=== PATIENT | female | born 1945 | race Caucasian/White ===

== ENCOUNTER → 2017-07-27 | Outpatient (CLI) | payer MEDICARE, OTHER ==
[~2017-07-27] MED LIST: LEVSOD200 PO; LOVA40 PO; SERT25 PO
== END | disposition home or self-care (01) ==
LOC: PLD 08:44 → LAB SHORT 08:44
DX: D22.72 Melanocytic nevi of left lower limb, including hip (principal)
CPT/HCPCS: 88305

== ENCOUNTER → 2018-08-02 | Outpatient (CLI) | payer MEDICARE, OTHER | END | disposition home or self-care (01) | LOC: LAB SHORT 13:37 → PLD 13:37 | DX: L57.0 Actinic keratosis (principal) | CPT/HCPCS: 88305 ==

== ENCOUNTER → 2018-10-16 | Outpatient (CLI) | payer MEDICARE, OTHER | END | disposition home or self-care (01) | LOC: PLD 11:06 → LAB SHORT 11:06 | DX: D22.5 Melanocytic nevi of trunk (principal) | CPT/HCPCS: 88305 ==

== ENCOUNTER 2019-03-20 09:29 | Day surgery (SDC) | payer MEDICARE, OTHER ==
[~2019-03-20] VITALS: Ht 165.1 cm; Wt 78.4 kg
[~2019-03-20 09:29] MED LIST changes: +Altoprev40 MG PO; +LEVSOD125 PO
--- NOTE | 2019-03-20 10:54 | NUR ---
03/20/19 Jesus4 Sandra Dent PT AMBULATED TO RESTROOM. RN UPDATED PT REGARDING THE DELAY.
== END 2019-03-20 13:30 | disposition home or self-care (01) ==
LOC: ORSCSDS 09:29
PROVIDERS: Internal Medicine Gastroenterology
PROC: 0DBH8ZX Excision of Cecum, Via Natural or Artificial Opening Endoscopic, Diagnostic (ICD-10-PCS; principal; 2019-03-20 10:45)
PROC: 0DB68ZX Excision of Stomach, Via Natural or Artificial Opening Endoscopic, Diagnostic (ICD-10-PCS; principal; 2019-03-20 10:45)
PROC: 0DBL8ZX Excision of Transverse Colon, Via Natural or Artificial Opening Endoscopic, Diagnostic (ICD-10-PCS; principal; 2019-03-20 10:45)
PROC: 0DBM8ZX Excision of Descending Colon, Via Natural or Artificial Opening Endoscopic, Diagnostic (ICD-10-PCS; principal; 2019-03-20 10:45)
PROC: 0D758ZZ Dilation of Esophagus, Via Natural or Artificial Opening Endoscopic (ICD-10-PCS; principal; 2019-03-20 10:45)
DX: R13.10 Dysphagia, unspecified (principal); K31.7 Polyp of stomach and duodenum; K22.2 Esophageal obstruction; K44.9 Diaphragmatic hernia without obstruction or gangrene; D12.3 Benign neoplasm of transverse colon; D12.0 Benign neoplasm of cecum; D12.4 Benign neoplasm of descending colon; K57.30 Diverticulosis of large intestine without perforation or abscess without bleeding; K64.4 Residual hemorrhoidal skin tags; K64.8 Other hemorrhoids; Z12.11 Encounter for screening for malignant neoplasm of colon; Z86.010 Personal history of colon polyps; R11.10 Vomiting, unspecified; K50.00 Crohn's disease of small intestine without complications; E03.9 Hypothyroidism, unspecified; E78.00 Pure hypercholesterolemia, unspecified; Z79.899 Other long term (current) drug therapy; Z87.891 Personal history of nicotine dependence
CPT/HCPCS: 88305; 88342; C1726; J2704; J7120

== ENCOUNTER → 2020-03-24 | Outpatient (CLI) | payer MEDICARE, OTHER | END | disposition home or self-care (01) | LOC: LAB SHORT 14:10 → PLD 14:10 | DX: D22.72 Melanocytic nevi of left lower limb, including hip (principal) | CPT/HCPCS: 88305 ==

== ENCOUNTER 2020-04-08 08:00 | Day surgery (SDC) | payer MEDICARE, OTHER ==
--- NOTE | 2020-04-08 09:40 | NUR ---
DISCHARGE SUMMARY PT A&OX4, VSS, WALKED PT OUT TO PT ENTRANCE AREA, WHERE SHE WILL WAIT FOR HER DAUGHTER IN LAW TO PICK HER UP, TO GO HOME WITH ALL PERSONAL POSSESSIONS. PT UNABLE TO DO CT R/T PULSE RATE; VERIFIED WITH NADYA/SAMPLE CARRIER. IV DC'D.
== END 2020-04-08 12:00 | disposition home or self-care (01) ==
LOC: CT 08:00 → ORD 08:00 → CT 09:00 → ORD 12:00
DX: I25.10 Atherosclerotic heart disease of native coronary artery without angina pectoris (principal); I10 Essential (primary) hypertension; E03.9 Hypothyroidism, unspecified; E55.9 Vitamin D deficiency, unspecified; E78.5 Hyperlipidemia, unspecified; K21.9 Gastro-esophageal reflux disease without esophagitis; Z79.82 Long term (current) use of aspirin; Z79.899 Other long term (current) drug therapy; Z87.891 Personal history of nicotine dependence; Z88.0 Allergy status to penicillin; Z88.8 Allergy status to other drugs, medicaments and biological substances; Z91.041 Radiographic dye allergy status; Z53.9 Procedure and treatment not carried out, unspecified reason

== ENCOUNTER 2022-08-24 11:30 | Day surgery (SDC) | payer MEDICARE, OTHER ==
[~2022-08-24] VITALS: Ht 165.1 cm; Wt 77.1 kg
[2022-08-24] MEDS ORDERED: OMEP20ER (12:41)
[2022-08-24] MEDS ORDERED: LOSA25 (12:41)
== END 2022-08-24 15:31 | disposition home or self-care (01) ==
LOC: ORSCSDS 11:30
PROVIDERS: Internal Medicine Gastroenterology
PROC: 0DBH8ZX Excision of Cecum, Via Natural or Artificial Opening Endoscopic, Diagnostic (ICD-10-PCS; principal; 2022-08-24 12:45)
PROC: 0DBE8ZX Excision of Large Intestine, Via Natural or Artificial Opening Endoscopic, Diagnostic (ICD-10-PCS; principal; 2022-08-24 12:45)
PROC: 0DB78ZX Excision of Stomach, Pylorus, Via Natural or Artificial Opening Endoscopic, Diagnostic (ICD-10-PCS; principal; 2022-08-24 12:45)
DX: R13.10 Dysphagia, unspecified (principal); K50.90 Crohn's disease, unspecified, without complications; Z86.010 Personal history of colon polyps; D12.0 Benign neoplasm of cecum; K31.7 Polyp of stomach and duodenum; K22.2 Esophageal obstruction; K44.9 Diaphragmatic hernia without obstruction or gangrene; K57.30 Diverticulosis of large intestine without perforation or abscess without bleeding; I10 Essential (primary) hypertension; E03.9 Hypothyroidism, unspecified; E78.5 Hyperlipidemia, unspecified; Z79.899 Other long term (current) drug therapy; Z79.82 Long term (current) use of aspirin
CPT/HCPCS: 88305; 88341; 88342; C1726; J2704; J7120

== ENCOUNTER 2023-06-30 13:11 | Day surgery (SDC) | payer MEDICARE, OTHER ==
[~2023-06-30] VITALS: Ht 165.1 cm; Wt 79.2 kg
[~2023-06-30 13:11] MED LIST changes: +LOSA25; +OMEP20ER
[2023-06-30] MEDS ORDERED: L-Lysine500 M1 (13:32)
[2023-06-30] MEDS ORDERED: PRESERVISION A1 EAC2 (13:33)
[2023-06-30] MEDS ORDERED: LOSARTAN-HCTZ1 EACH (13:45)
[2023-06-30 15:20] VITALS: BP 108/60
--- NOTE | 2023-06-30 15:23 | NUR ---
06/30/23 1523 Niki Jean IV DC'D, CATH INTACT. PT TOLERATED WELL. GAUZE/COBAN IN PLACE
== END 2023-06-30 15:24 | disposition home or self-care (01) ==
LOC: ORSCSDS 13:11
PROVIDERS: Specialist
PROC: 0DJD8ZZ Inspection of Lower Intestinal Tract, Via Natural or Artificial Opening Endoscopic (ICD-10-PCS; principal; 2023-06-30 15:00)
DX: K62.5 Hemorrhage of anus and rectum (principal); Z86.010 Personal history of colon polyps; K64.8 Other hemorrhoids; K64.4 Residual hemorrhoidal skin tags; K57.30 Diverticulosis of large intestine without perforation or abscess without bleeding; K50.90 Crohn's disease, unspecified, without complications; E03.9 Hypothyroidism, unspecified; I10 Essential (primary) hypertension; R15.9 Full incontinence of feces; Z79.82 Long term (current) use of aspirin; Z79.899 Other long term (current) drug therapy
CPT/HCPCS: J0461; J2001; J2405; J2704; J7120; Q9968

== ENCOUNTER 2024-09-14 16:09 | Emergency (ER) | payer MEDICARE, OTHER ==
[~2024-09-14] VITALS: Ht 165.1 cm; Wt 79.4 kg
[~2024-09-14 16:09] MED LIST changes: +L-Lysine500 M1; +LOSARTAN-HCTZ1 EACH; +PRESERVISION A1 EAC2
[2024-09-14 16:48] VITALS: BP 163/93
[2024-09-14] MEDS ORDERED: Diphth,Pertuss(Acell),Tet Vac 0.5 ML VIAL IM ONE (18:20)
== END 2024-09-14 19:40 | disposition other institution (70) ==
LOC: ER 16:09
DX: S01.312A Laceration without foreign body of left ear, initial encounter (principal); W18.30XA Fall on same level, unspecified, initial encounter; Z79.899 Other long term (current) drug therapy; Z91.041 Radiographic dye allergy status; Z88.0 Allergy status to penicillin; Z88.8 Allergy status to other drugs, medicaments and biological substances
CPT/HCPCS: 12011; 70450; 90471; 90715; 99283-25

== ENCOUNTER 2024-09-28 09:24 | Emergency (ER) | payer MEDICARE, OTHER ==
[~2024-09-28] VITALS: Ht 167.6 cm; Wt 79.4 kg
[2024-09-28] MEDS ORDERED: Prochlorperazine Edisylate 10 mg Vial IV ONE (10:15)
[2024-09-28] MEDS ORDERED: Acetaminophen 500 MG Tab PO ONE (10:15)
[2024-09-28] MEDS ORDERED: NS 1,000 ML IV SCH (10:15)
[2024-09-28] MEDS ORDERED: DiphenhydrAMINE HCl 50 MG/ML 1ML Vial IV ONE (10:15)
[2024-09-28] MEDS ORDERED: Dexamethasone Sod Phos 10 MG/ML 1ML VIAL IV ONE (10:15)
[2024-09-28 11:45] LABS: BASOPHILS ABSOLUTE AUTO 0.06 K/mm3 (0.00-0.23); BASOPHILS PERCENT AUTO 1 % (0-2); EOSINOPHILS ABSOLUTE AUTO 0.14 K/mm3 (0.00-0.68); EOSINOPHILS PERCENT AUTO 3 % (0-6); Hematocrit 38.5 % (33.0-51.0); Hemoglobin 12.8 g/dL (11.5-16.0); IMMATURE GRAN ABSOLUTE AUTO 0.01 K/mm3 (0.00-0.10); IMMATURE GRAN PERCENT AUTO 0 % (0-1); LYMPHOCYTES ABSOLUTE AUTO 1.74 K/mm3 (0.84-5.20); LYMPHOCYTES PERCENT AUTO 31 % (21-46); MONOCYTES ABSOLUTE AUTO 0.26 K/mm3 (0.16-1.47); MONOCYTES PERCENT AUTO 5 % (4-13); Mean Corpuscular HGB 28.9 pg (26.0-34.0); Mean Corpuscular HGB Conc 33.2 g/dL (31.5-36.5); Mean Corpuscular Volume 87 fL (80-100); Mean Platelet Volume 10.4 fL (9.1-12.4); NEUTROPHILS ABSOLUTE AUTO 3.41 K/mm3 (1.96-9.15); NEUTROPHILS PERCENT AUTO 61 % (41-73); Platelet Count 225 K/mm3 (150-400); RDW Coefficient Variation 13.2 % (11.7-14.2); RDW Standard Deviation 42.3 fL (35.1-46.3); Red Blood Cell Count 4.43 M/mm3 (3.80-5.20); White Blood Cell Count 5.62 K/mm3 (4.00-11.30)
[2024-09-28 11:49] LABS: Alanine Aminotransfer (ALT/SGP 18 U/L (12-78); Albumin, Blood 3.7 g/dL (3.4-5.0); Albumin/Globulin Ratio 1.2 (0.8-1.8); Alk Phos 71 U/L (50-136); Anion Gap 8 mmol/L (3-11); Aspartate Aminotrans (AST/SGOT 14 U/L (12-37); Bilirubin, Total 0.5 mg/dL (0.1-1.0); Blood Urea Nitrogen 15 mg/dL (8-24); Bun/Creatinine Ratio 17.2 (12.0-20.0); CO2, Blood 28 mmol/L (21-32); Chloride, Blood 108 mmol/L (98-108); Creatinine, Blood 0.87 mg/dL (0.40-1.00); Ethanol (Alcohol), Blood, Med <3 mg/dL; Globulin, Blood 3.1 g/dL (2.2-4.0); Glomerular Filtration Rate 67 (60-); Glucose, Blood 98 mg/dL (70-99); Potassium, Blood 3.9 mmol/L (3.5-5.5); Sodium, Blood 140 mmol/L (136-145); Total Protein, Blood 6.8 g/dL (6.4-8.2)
[2024-09-28 13:48] VITALS: BP 156/74
== END 2024-09-28 13:50 | disposition home or self-care (01) ==
LOC: ER 09:24
PROVIDERS: Student in an Organized Health Care Education/Training Program
DX: R51.9 Headache, unspecified (principal); I10 Essential (primary) hypertension; Z79.890 Hormone replacement therapy; Z79.899 Other long term (current) drug therapy; Z91.041 Radiographic dye allergy status; Z88.0 Allergy status to penicillin; Z88.1 Allergy status to other antibiotic agents
CPT/HCPCS: 70450; 80053; 80320; 85025; 85730; 93005; 93010; 96374; 96375; 99284-25; A9270; J0780; J1100; J1200; J7030

== ENCOUNTER → 2025-05-06 | Outpatient (CLI) | payer MEDICARE, OTHER ==
[2025-05-06 13:44] LABS: Bilirubin, Urine Neg (Neg); Color, Urine Yellow (P-Yellow); Glucose Qualitative, Urine Neg (Neg); Ketones, Urine Neg (Neg); Leukocyte Esterase, Urine Neg (Neg); Protein, Urine 2+ (Neg); Specific Gravity, Urine 1.025 (1.003-1.022); Urobilinogen, Urine NORM (Normal)
[2025-05-06 14:22] LABS: Red Blood Cells, Urine 0-2 /hpf (0-2); White Blood Cells, Urine 0-2 /hpf (0-5)
== END | disposition home or self-care (01) ==
LOC: LAB 10:49 → LAB SHORT 10:49
PROVIDERS: Urology
DX: R39.15 Urgency of urination (principal)
CPT/HCPCS: 81001